=== PATIENT | male | born 1950 | race Caucasian/White ===

== ENCOUNTER 2021-08-10 06:04 | Day surgery (SDC) | payer MEDICARE, BC ==
[~2021-08-10] VITALS: Ht 177.8 cm; Wt 89.4 kg
[2021-08-10] VITALS (18 sets, daily range): BP systolic 120–144; BP diastolic 61–80; PULSE 48–74; TEMP 97.4–98.4
[~2021-08-10 06:04] MED LIST: ALEVE220 MG PO; ALLOPURINOL300 MG PO; ASPIRIN 32325 MG/TAB PO; AVODART 0.5MG0.5 MG PO; BACTRIM DS 8001 TAB PO; CRESTOR5 MG PO; FORTAMET1000 MG PO; GLUCOSAMINE & C1 TA1 PO; GLUCOTROL 5M5 MG/TAB PO; MASON NATURAL1200 MG PO; NAPROSYN500 MG PO; NORCO 325 MG-51 TAB PO; PLAVIX 75MG TAB75 MG PO; POTASSIUM CITR10 MEQ PO; UROCIT-K 1010 MEQ PO
[2021-08-10 07:28] LABS: HEMATOCRIT 37.4 % (42.0-52.0); HEMOGLOBIN 12.3 g/dl (13.5-18.0); INR 1.1 (0.8-3.0); MEAN CELL VOLUME 99 fl (80.0-100.0); MEAN CORPUSCULAR HEMOGLOBIN 33 pg (27.0-31.0); MEAN CORPUSCULAR HGB CONC 33 g/dl (33.0-37.0); MEAN PLATELET VOLUME 10.2 fl (7.4-10.4); PLATELET COUNT 283 K/mm3 (130-400); PROTHROMBIN TIME 11.7 SECONDS (9.7-12.8); RED BLOOD COUNT 3.79 M/mm3 (4.20-5.60); REDCELL DISTRIBUTION WIDTH-CV 13.9 % (11.5-14.5)
[2021-08-10 07:30] LABS: CALCIUM 9.2 mg/dL (8.4-10.2); CREATININE, serum 1.18 (0.66-1.25); PARTIAL THROMBOPLASTIN TIME 30.5 SECONDS (26.0-37.0); POTASSIUM 4.4 mmol/L (3.4-5.0)
[2021-08-10] MEDS ORDERED: TRULICITY0.75 MG/0. SQ (07:50)
[2021-08-10] MEDS ORDERED: COZAAR 25MG25 MG/TAB PO (07:52)
[2021-08-10] MEDS ORDERED: ACTOS30 MG PO (07:53)
[2021-08-10] MEDS ORDERED: PREDNISONE 5MG5 MG PO (07:54)
--- NOTE | 2021-08-10 08:18 | NUR ---
SEE MERGE DOCUMENTATION FOR MEDICATION ADMINISTRATION TIMES AND INTRA/POST PROCEDURE SEDATION ASSESSMENTS.
--- NOTE | 2021-08-10 09:08 | NUR ---
report received pt is to be transferred to ICU.
--- NOTE | 2021-08-10 12:35 | NUR ---
First visit from the market basket maker. No needs right now.
--- NOTE | 2021-08-10 13:07 | NUR ---
PT TO ROOM 327 PER CART WITH REPORT FROM JOSE RAMON NOEL TREE AND SHRUB WORKER. PT IS A/O X3, LUNGS CTA, BOWEL SOUNDS PRESENT. IV TO GRAVITY. VSS. AT BEDSIDE. TR BAND INPLACE AND MIN DRAINAGE NOTED. PT DENIES NEEDS OR PAIN AT THIS TIME. TELE PLACED BY JOSE RAMON NOEL.
--- NOTE | 2021-08-10 13:08 | NUR ---
TR BAND REMOVED PER PROTOCOL PT TOLERATED WELL, BANDAID PLACED NO OOZING NOTED.
--- NOTE | 2021-08-10 20:50 | NUR ---
Pt. sitting up in bed at this time. Pt. is A&OX3, assessment complete. INT to lt. ac patent. Rt. radial cath site CDI, SUMAN. Pt. denies pain or other needs, call light within reach.
[2021-08-11] VITALS: BP 128/80; PULSE 68; TEMP 98.2
[2021-08-11 03:32] VITALS: BP 127/69; PULSE 67; TEMP 97.8
[2021-08-11 04:19] VITALS: BP 127/69; PULSE 67; TEMP 97.8
[2021-08-11 06:56] VITALS: BP 114/68; PULSE 70; TEMP 97.8
[2021-08-11 07:53] VITALS: BP 126/68; PULSE 73; TEMP 98.1
[2021-08-11 07:59] LABS: BASO # 0.1 (0.0-0.2); BASO % 0.8 % (0.0-2.0); EOS # 0.1 (0.0-0.7); EOS % 1.6 % (0-4.0); GRAN # 4.4 (1.4-6.5); GRAN % 72.6 % (42.2-75.2); HEMATOCRIT 39.4 % (42.0-52.0); HEMOGLOBIN 12.9 g/dl (13.5-18.0); LYMPH # 0.9 (1.2-3.4); LYMPH % 15.4 % (20.0-51.0); MEAN CELL VOLUME 99 fl (80.0-100.0); MEAN CORPUSCULAR HEMOGLOBIN 32 pg (27.0-31.0); MEAN CORPUSCULAR HGB CONC 33 g/dl (33.0-37.0); MEAN PLATELET VOLUME 10.3 fl (7.4-10.4); MONO # 0.6 (0.1-0.6); MONO % 9.3 % (1.7-9.3); PLATELET COUNT 322 K/mm3 (130-400); RED BLOOD COUNT 3.99 M/mm3 (4.20-5.60); REDCELL DISTRIBUTION WIDTH-CV 14.1 % (11.5-14.5)
[2021-08-11 08:11] LABS: CALCIUM 9.3 mg/dL (8.4-10.2); CREATININE, serum 1.27 (0.66-1.25); POTASSIUM 4.1 mmol/L (3.4-5.0)
--- NOTE | 2021-08-11 10:11 | NUR ---
MAINTENANCE MAN IN TO SEE PT AND PROVIDED HEART HEALTHY EDUCATION.
--- NOTE | 2021-08-11 10:11 | NUR ---
AGREE WITH STUDENT'S ASSESSMENTS THIS AM.
--- NOTE | 2021-08-11 11:12 | NUR ---
CORA CARDS GIVEN TO PER LORENA NOEL.
--- NOTE | 2021-08-11 11:12 | NUR ---
BONILLA met with patient and his , Miriam, at bedside. Patient and live in [place] in a single family dwelling with 2 steps to enter. Patient is fully independent with ADL's and very active; however, he states he has every DME available if needed. He has no 02 needs. Patient's PCP is Dr. Akira Trejo in [place] and he obtains his meds from [facility] in [place] with no difficulties. Patient and state that there is a DPOA on file and in their possession. *D/C home with no needs
[2021-08-11 11:14] VITALS: BP 125/66; PULSE 67; TEMP 97.7
[2021-08-11] MEDS ORDERED: BRILINTA90 MG PO (12:50)
[2021-08-11] MEDS ORDERED: TOPROL XL 25MG25 MG PO (12:51)
[2021-08-11] MEDS ORDERED: ASPIRIN E.C. 8181 MG PO (12:51)
--- NOTE | 2021-08-11 13:22 | NUR ---
DISCHARGE INSTRUCTIONS REVIEWED WITH PT AND . QUESTIONS ANSWERED. PT LEFT UNIT AMBULATORY WITH STAFF.
== END 2021-08-11 13:24 | disposition home or self-care (01) ==
LOC: SURG 06:04 → COL.CAR 06:04 → SURG 10:00 → COL.CAR 08-11 13:24
PROVIDERS: Internal Medicine Cardiovascular Disease
DX: I25.10 Atherosclerotic heart disease of native coronary artery without angina pectoris (principal); I48.0 Paroxysmal atrial fibrillation
CPT/HCPCS: OP; C1725; C1769; C1874; C1887; C9600; J0583; J1644; J2250; J3010; J7512; Q9967